=== PATIENT | male | born 1950 | race Caucasian/White ===

== ENCOUNTER → 2017-01-09 | Outpatient (CLI) | payer MEDICARE, BC ==
[~2017-01-09] MED LIST: ALAVERT10 M1 PO; CENTRUM SILVER1 CTB PO; GLUCOSAMINE & C1 CAP PO; PREVACID 30MG30 M1 PO; SIMVASTATIN40 MG PO
== END ==
LOC: COL.PUL 09:46
DX: R06.02 Shortness of breath (principal)
CPT/HCPCS: J7674

== ENCOUNTER → 2022-10-01 | Outpatient (CLI) | payer MEDICARE, BC | LOC: COL.VAS 13:58 | DX: M79.605 Pain in left leg (principal) ==